=== PATIENT | female | born 2000 | race Caucasian/White ===

== ENCOUNTER 2018-01-21 09:50 | Emergency (ER) | payer BC ==
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
[2018-01-21 10:21] LABS: PLATELET COUNT, AUTOMATED 240 K/uL (150-450)
[2018-01-21] MEDS ORDERED: ETHI1TAB3 PO (10:23)
[2018-01-21] MEDS ORDERED: IOPAMIDOL 76% 75 ML INFUS BTL 75 ML ONE (10:28)
[2018-01-21] MEDS ORDERED: NS 0.9% 150 ML BAG 150 ML ONE (10:28)
--- NOTE | 2018-01-21 11:45 | RADIOLOGY IMAGING REPORT ---
FACILITY: [facility] - [place] PATIENT NAME: Zee Delgado : 2000 MR: [id number] V: [id number] EXAM DATE: ORDERING PHYSICIAN: MONTEZ MARIE TECHNOLOGIST: Location: [facility] [place] Patient: Zee Delgado : 2000 Visit/Account:[id number] Date of Sevice: 01/21/2018 EXAMINATION: CT chest with IV contrast CT abdomen with IV contrast CT pelvis with IV contrast HISTORY: Trauma. TECHNIQUE: Spiral scan was obtained through the chest, abdomen and pelvis during injection of nonio isela iodinated intravenous contrast. Sagittal and coronal reformatted images are also submitted. One of the following dose optimization techniques was utilized in the performance of this exam: Autom ated exposure control; adjustment of the mA and/or kV according to the patient's size; or use of an i terative reconstruction technique. Specific details can be referenced in the facility's radiology C T exam operational policy. CONTRAST: 75 mL of IV [id number] COMPARISON: None. FINDINGS: CT THORAX: Lungs / pleura: Negative. Mediastinum / leo: Negative. Heart / pericardium: Negative. Vessels: Negative. Musculoskeletal / Body wall: Acute T12 vertebral body fracture and T11 spinous process fracture with nearly perched facets at T11-T12. Approximately 30% loss of vertebral body height anteriorly at T12. No retropulsion. Nondisplaced fracture of the right inferior tip of the sternum (series 5, image 10) Lymph node assessment: Negative. Lower neck: Negative. CT ABDOMEN AND PELVIS: Liver / biliary: Negative. Pancreas: Negative. Spleen: Negative. Adrenal glands: Negative. Kidneys: Negative. Pelvic structures: Prominent adnexal blood vessels, left greater than right. The left renal vein i s narrowed between the aorta in the superior mesenteric artery (series 2, image 25). A tampon is note d. Bowel: No obstruction or bowel wall thickening. Normal appendix. Peritoneum / retroperitoneum / mesenteries: Mild free fluid in the pelvis. No free air. 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 Musculoskeletal / Body wall: Negative. Lymph node assessment: Negative. IMPRESSION: 1. Acute T12 vertebral body fracture and T11 spinous process fracture with 30% loss of vertebral body height anteriorly at T12 and nearly perched facets at T11-T12. No retropulsion. No definite intraspi nal hemorrhage. 2. Otherwise no acute abnormality in the chest, abdomen, or pelvis. 3. 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 This can be seen with Nutcracker phenomenon or Nutcracker synd yaquelin. Correlate clinically. Report Dictated By: Omid Mcgill MD at 01/21/2018 11:08 AM Report E-Signed By: Omid Mcgill MD at 01/21/2018 11:41 AM WSN:[id number]
[2018-01-21 13:30] VITALS: BP 116/77
== END 2018-01-21 14:05 | disposition short-term general hospital (02) ==
LOC: ER 09:56
DX: S22.080A Wedge compression fracture of T11-T12 vertebra, initial encounter for closed fracture (principal); V48.1XXA Car passenger injured in noncollision transport accident in nontraffic accident, initial encounter
CPT/HCPCS: 36415; 71260; 74177; 81001; 84703; 85025; 99285; Q9967

== ENCOUNTER → 2018-01-21 | Outpatient (CLI) | payer BC ==
[~2018-01-21] MED LIST: ETHI1TAB3 PO
== END ==
LOC: AMB 13:51
PROVIDERS: ATTEND Nurse Practitioner
DX: M54.6 Pain in thoracic spine (principal); V49.88XA Car occupant (driver) (passenger) injured in other specified transport accidents, initial encounter
CPT/HCPCS: A0425; A0426